=== PATIENT | female | born 1985 | race Hispanic/Latino ===

== ENCOUNTER 2018-07-24 08:20 | Emergency (ER) | payer BC, SELFPAY ==
[2018-07-24] MEDS ORDERED: MORPHINE 4 MG/ML SYR ONE (08:57)
[2018-07-24] MEDS ORDERED: ONDANSETRON 4 MG/2 ML VIAL ONE (08:58)
[2018-07-24 09:04] LABS: Absolute Lymphocytes (CBC) 5.2 K/uL (0.7-4.9); Absolute Neutrophil 6.6 K/uL (1.8-8.0); Basophils % 0.7 % (0-1.3); Eosinophils % 5.8 % (0-4.4); Hematocrit 42.7 % (36.0-45.0); Lymphocytes % 38.2 % (15.3-44.8); MPV 7.6 fL (7.6-11.3); Monocytes % 7.3 % (3.3-12.3); RBC Red Blood Cell Count 4.81 M/uL (3.86-4.86)
[2018-07-24] MEDS ORDERED: DIPHENHYDRAMINE 50 MG/ML VIAL ONE (09:18)
[2018-07-24 09:23] LABS: ALT/SGPT 21 U/L (12-78); AST/SGOT 13 U/L (15-37); Albumin 3.8 g/dL (3.4-5.0); Alkaline Phosphatase 116 U/L (45-117); BUN Blood Urea Nitrogen 10 mg/dL (7-18); Bicarbonate 25 mmol/L (21-32); Bilirubin Direct < 0.1 mg/dL (0-0.2); Bilirubin Total 0.2 mg/dL (0.2-1.0); Glucose Level 88 mg/dL (74-106); NT PRO-BNP 30 pg/mL (<125); Protein, Total 7.8 g/dL (6.4-8.2); Sodium Level 140 mmol/L (136-145); Troponin (Emerg Dept Use Only) < 0.02 ng/mL (0.0-0.045)
[2018-07-24 09:40] LABS: Protime INR 1.02
--- NOTE | 2018-07-24 09:42 | RAD REPORT ---
EXAM DESCRIPTION: Ismael Single View07/24/2018 9:27 am CLINICAL HISTORY: Chest pain COMPARISON: June 2017 FINDINGS: The lungs appear clear of acute infiltrate. The heart is normal size IMPRESSION: No acute abnormalities displayed
--- NOTE | 2018-07-24 10:52 | ER ---
Nurse's Notes [facility] Name: January Pereira Age: 32 yrs Sex: Female : 1985 Arrival Date: 07/24/2018 Time: 08:24 Bed 19 Private MD: Diagnosis: Trapezius Strain;UTI Presentation: 07/24 08:34 Presenting complaint: Patient states: left shoulder pain that radiates to left arm sv started yesterday. Pt laughed and was deep breathing yesterday and started having left sided chest pain and SOB. Transition of care: patient was not received from another setting of care. Onset of symptoms was July 23, 2018. Risk Assessment: Do you want to hurt yourself or someone else? Patient reports no desire to harm self or others. Initial Sepsis Screen: Does the patient meet any 2 criteria? No. Patient's initial sepsis screen is negative. Does the patient have a suspected source of infection? No. Patient's initial sepsis screen is negative. Care prior to arrival: None. 08:34 Method Of Arrival: Ambulatory sv 08:34 Acuity: HATTIE 3 sv Triage Assessment: 08:35 General: Appears in no apparent distress. uncomfortable, well developed, Behavior is sv cooperative, crying. Pain: Complains of pain in anterior aspect of left upper chest, left breast and left arm Pain currently is 8 out of 10 on a pain scale. Quality of pain is described as shooting, Pain began 1 day ago. Is continuous, Aggravated by increased activity. Neuro: Level of Consciousness is awake, alert, obeys commands, Oriented to person, place, time, situation, Moves all extremities. Full function Gait is steady. Cardiovascular: Patient's skin is warm and dry. Rhythm is sinus rhythm. Respiratory: Airway is patent Respiratory effort is even, unlabored, Respiratory pattern is regular, symmetrical. Derm: Skin is pink, warm \T\ dry. ENDOSCOPY SUPPORT SPECIALIST: 08:35 LMP N/A - control method, Mirena sv Historical: - Allergies: 08:43 No Known Allergies; sv - PMHx: 08:43 None; sv - PSHx: 08:43 ; sv - Immunization history:: Adult Immunizations up to date. - Social history:: Smoking status: Patient/guardian denies using tobacco. - Ebola Screening: : No symptoms or risks identified at this time. Screenin:35 Abuse screen: Denies threats or abuse. Denies injuries from another. Nutritional sv screening: No deficits noted. Tuberculosis screening: No symptoms or risk factors identified. Fall Risk None identified. Assessment: 09:08 Reassessment: Pt c/o itching after medication administration. Informed Henrry WALKER, venecia medication ordered. 10:15 Reassessment: Patient appears in no apparent distress at this time. Patient and/or sv family updated on plan of care and expected duration. Pain level reassessed. Patient is alert, oriented x 3, equal unlabored respirations, skin warm/dry/pink. Patient states feeling better. Patient states symptoms have improved. 11:04 Reassessment: Patient appears in no apparent distress at this time. Patient and/or sv family updated on plan of care and expected duration. Pain level reassessed. Patient is alert, oriented x 3, equal unlabored respirations, skin warm/dry/pink. Patient denies pain at this time. Patient states feeling better. Patient states symptoms have improved. Vital Signs: 08:43 BP 124 / 81; Pulse 69; Resp 20; Temp 97.2; Pulse Ox 99% ; Weight 113.4 kg; Height 5 ft. sv 7 in. (170.18 cm); Pain 8/10; 09:16 BP 113 / 85; Pulse 75; Resp 19; Pulse Ox 99% ; sv 10:14 BP 110 / 78; Pulse 65 MON; Resp 21; Pulse Ox 97% on R/A; sv 11:00 BP 112 / 80; Pulse 70; Resp 16; Pulse Ox 99% ; Pain 0/10; sv 08:43 Body Mass Index 39.16 (113.40 kg, 170.18 cm) sv 10:14 Sinus Rhythm sv ED Course: 08:24 Patient arrived in ED. sb2 08:32 Henrry Velasquez PA is PHCP. jmm 08:32 Bennie Castro MD is Attending Physician. jmm 08:35 Patient maintains SpO2 saturation greater than 95% on room air. sv 08:35 Arm band placed on Patient placed in an exam room, on a stretcher. sv 08:35 Patient has correct armband on for positive identification. Placed in gown. Bed in low sv position. Call light in reach. Adult w/ patient. svp digital sales on. Pulse ox on. NIBP on. Door closed. Head of bed elevated. 08:42 Sushma Ambrocio, RN is Primary Nurse. sv 08:43 Triage completed. sv 08:45 Initial lab(s) drawn, by ED staff, sent to lab. Inserted saline lock: 22 gauge in right sv forearm, using aseptic technique. ,using aseptic technique. diffusics, done by [facility] Blood collected. 09:27 XRAY Chest (1 view) In Process Unspecified. EDMS 11:04 No provider procedures requiring assistance completed. IV discontinued, intact, sv bleeding controlled, No redness/swelling at site. Pressure dressing applied. Administered Medications: 08:55 Drug: Zofran 4 mg Route: IVP; Infused Over: 2 mins; Site: right forearm; sv 09:12 Follow up: Response: No adverse reaction sv 08:57 Drug: morphine 4 mg Route: IVP; Site: right forearm; sv 09:13 Follow up: Response: No adverse reaction sv 09:12 Drug: Benadryl 25 mg Route: IVP; Site: right forearm; sv 09:30 Follow up: Response: No adverse reaction sv Outcome: 10:51 Discharge ordered by . li 11:04 Discharged to home ambulatory, with family. sv 11:04 Condition: stable 11:04 Discharge instructions given to patient, Instructed on discharge instructions, follow up and referral plans. no drinking with medication, no driving heavy equipment, medication usage, Demonstrated understanding of instructions, follow-up care, medications, Prescriptions given X 2. 11:05 Patient left the ED. sv Signatures: Dispatcher [employer] EDND Sushma Ambrocio RN RN sv Mickail, Joel, PA PA Cammie Garcia sb2
--- NOTE | 2018-07-24 10:53 | EDPHYS ---
Physician Documentation [facility] Name: January Pereira Age: 32 yrs Sex: Female : 1985 Arrival Date: 07/24/2018 Time: 08:24 Bed 19 Private MD: ED Physician Bennie Castro HPI: 07/24 08:42 This 32 yrs old Female presents to ER via Ambulatory with complaints of m Shoulder Pain, Chest Pain - ON BREATHING. 08:42 The patient or guardian reports chest pain that is located primarily in the anterior [facility] chest wall. The pain radiates to the left arm. Associated signs and symptoms: Pertinent positives: shortness of breath. The chest pain is described as sharp. This is a 32 year old female with no chronic medical conditions that presents to the ED with complaints of chest pain beginning yesterday at 1600. Patient states she developed left upper back pain which radiated down her left arm 2 hours prior and chest pain developed after laughing. Pain has been constant. Worsened with deep breath. Patient denies history of CAD. . 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 - Social history:: Smoking status: Patient/guardian denies using tobacco. - Ebola Screening: : No symptoms or risks identified at this time. ROS: 08:42 Constitutional: Negative for fever, chills, and weight loss. jmm 08:42 Respiratory: Negative for shortness of breath, cough, wheezing, and pleuritic chest pain. 08:42 Cardiovascular: Positive for chest pain. 08:42 Back: Positive for pain with movement. 08:42 MS/extremity: Positive for pain. 08:42 All other systems are negative. Exam: 08:42 Constitutional: This is a well developed, well nourished patient who is awake, alert, jmm and in no acute distress. Head/Face: atraumatic. Eyes: EOMI, no conjunctival erythema appreciated ENT: Moist Mucus Membranes Neck: Trachea midline, Supple Chest/axilla: Normal chest wall appearance and motion. 08:42 Skin: General appearance color normal MS/ Extremity: Moves all extremities, no obvious deformities appreciated, no edema noted to the lower extremities Neuro: Awake and alert, normal gait Psych: Behavior is normal, Mood is normal, Patient is cooperative and pleasant 08:42 Chest/axilla: Palpation: tenderness, that is moderate, of the anterior aspect of left upper chest, that totally reproduces the patient's complaints. 08:42 Cardiovascular: Rate: normal, Rhythm: regular. 08:42 Respiratory: the patient does not display signs of respiratory distress, Respirations: normal, Breath sounds: are clear throughout. 08:42 Abdomen/GI: Inspection: abdomen appears normal. 08:42 Back: left trapezius tenderness on palpation. 08:42 Musculoskeletal/extremity: ROM: intact in all extremities. 08:42 Skin: Appearance: Color: normal in color. 08:42 Neuro: Orientation: is normal, Mentation: is normal, Memory: is normal. 08:42 Psych: Behavior/mood is pleasant, cooperative. Vital Signs: 08:43 BP 124 / 81; Pulse 69; Resp 20; Temp 97.2; Pulse Ox 99% ; Weight 113.4 kg; Height 5 ft. sv 7 in. (170.18 cm); Pain 8/10; 09:16 BP 113 / 85; Pulse 75; Resp 19; Pulse Ox 99% ; sv 10:14 BP 110 / 78; Pulse 65 MON; Resp 21; Pulse Ox 97% on R/A; sv 11:00 BP 112 / 80; Pulse 70; Resp 16; Pulse Ox 99% ; Pain 0/10; sv 08:43 Body Mass Index 39.16 (113.40 kg, 170.18 cm) sv 10:14 Sinus Rhythm sv MDM: 08:42 Patient medically screened. [facility] 10:49 Data reviewed: vital signs, nurses notes, lab test result(s), EKG, radiologic studies, [facility] plain films. ED course: Patient has low risk of AMI, D-Dimer negative. I advised the patient to follow up with PCP for reevaluation. Patient is otherwise advised to return to the ED if symptoms worsen. . 07/24 08:43 Order name: Basic Metabolic Panel; Complete Time: 09:25 [facility] 07/24 08:43 Order name: CBC with Diff; Complete Time: 09:25 [facility] 07/24 08:43 Order name: LFT's; Complete Time: 09:25 [facility] 07/24 08:43 Order name: Magnesium; Complete Time: 09:25 [facility] 07/24 08:43 Order name: NT PRO-BNP; Complete Time: 09:25 [facility] 07/24 08:43 Order name: PT-INR; Complete Time: 09:43 [facility] 07/24 08:43 Order name: Troponin (emerg Dept Use Only); Complete Time: 09:25 [facility] 07/24 08:43 Order name: XRAY Chest (1 view); Complete Time: 09:45 [facility] 07/24 08:43 Order name: D-Dimer; Complete Time: 09:43 [facility] 07/24 10:08 Order name: Urine Dipstick--Ancillary (enter results) 07/24 10:08 Order name: Urine --Ancillary (enter results) 07/24 10:14 Order name: Urine Microscopic Only; Complete Time: 11:01 07/24 08:43 Order name: EKG; Complete Time: 08:44 [facility] 07/24 08:43 Order name: Cardiac monitoring; Complete Time: 09:01 [facility] 07/24 08:43 Order name: EKG - Nurse/Tech; Complete Time: 09:01 [facility] 07/24 08:43 Order name: IV Saline Lock; Complete Time: 09:01 [facility] 07/24 08:43 Order name: Labs collected and sent; Complete Time: 09:01 [facility] 07/24 08:43 Order name: O2 Per Protocol; Complete Time: 09:01 [facility] 07/24 08:43 Order name: O2 Sat Monitoring; Complete Time: 09:01 [facility] Administered Medications: 08:55 Drug: Zofran 4 mg Route: IVP; Infused Over: 2 mins; Site: right forearm; sv 09:12 Follow up: Response: No adverse reaction sv 08:57 Drug: morphine 4 mg Route: IVP; Site: right forearm; sv 09:13 Follow up: Response: No adverse reaction sv 09:12 Drug: Benadryl 25 mg Route: IVP; Site: right forearm; sv 09:30 Follow up: Response: No adverse reaction sv Disposition: 17:18 Co-signature as Attending Physician, Bennie Castro MD. rn Disposition: 07/24/18 10:51 Discharged to Home. Impression: Trapezius Strain, UTI. - Condition is Stable. - Discharge Instructions: Nonspecific Chest Pain, Muscle Strain, Urinary Tract Infection, Adult. - Prescriptions for Cephalexin 500 mg Oral Capsule - take 1 capsule by ORAL route every 12 hours for 7 days; 14 capsule. orphenadrine citrate 100 mg Oral Tablet Sustained Release - take 1 tablet by ORAL route 2 times per day As needed; 20 tablet. - Work release form, Medication Reconciliation Form, Thank You Letter, Antibiotic Education, Prescription Opioid Use form. - Follow up: Private Physician; When: 2 - 3 days; Reason: Recheck today's complaints, Continuance of care, Re-evaluation by your physician. Signatures: Dispatcher [employer] Sushma Solitario RN RN Henrry Gresham PA PA jmm Nieto, Roman, MD MD director learning: (The following items were deleted from the chart) 11:05 10:51 07/24/2018 10:51 Discharged to Home. Impression: Trapezius Strain; UTI. Condition sv is Stable. Forms are Medication Reconciliation Form, Thank You Letter, Antibiotic Education, Prescription Opioid Use. Follow up: Private Physician; When: 2 - 3 days; Reason: Recheck today's complaints, Continuance of care, Re-evaluation by your physician. li
[2018-07-24 10:54] LABS: Urine Bacteria >50 /HPF (<20); Urine Culture Reflex Order NOT NEEDED; Urine RBC <5 /HPF (NONE SEEN)
[2018-07-24 11:25] VITALS: TEMP 97.2
[2018-07-24 11:27] VITALS: BP 110/78; O2SAT 97
--- NOTE | 2018-07-24 12:19 | EKG ---
Test Date: 2018-06-23 Test Time: 08:56:44 Brick Tender: FAYE MEASUREMENT RESULTS: Intervals: Rate: 71 DC: 130 QRSD: 80 QT: 398 QTc: 432 [place]: P: 34 DC: 130 QRS: 59 T: 51 INTERPRETIVE STATEMENTS: Normal sinus rhythm Normal ECG Compared to ECG 07/13/2017 08:01:17 Sinus bradycardia no longer present Electronically Signed On 07-24-18 12:18:39 PRINTED CIRCUIT BOARD ASSEMBLY REPAIRER by Franco Chaves
[2018-07-24 12:35] LABS: Urine Blood 3+ (NEG); Urine Glucose NEGATIVE (NEG); Urine Protein NEGATIVE (NEG); Urine Specific Gravity 1.025 (1.005-1.030); Urine pH 5.5 (5.0-7.0)
== END 2018-07-24 11:05 | disposition home or self-care (01) ==
LOC: ER 08:20
DX: S46.812A Strain of other muscles, fascia and tendons at shoulder and upper arm level, left arm, initial encounter (principal); N39.0 Urinary tract infection, site not specified
CPT/HCPCS: 36415; 71045; 80048; 80076; 81003; 81015; 81025; 83735; 83880; 84484; 85025; 85379; 85610; 93005; 96374; 96375; 99285; J2405

== ENCOUNTER 2018-09-12 08:49 | Emergency (ER) | payer BC ==
[2018-09-12] MEDS ORDERED: predniSONE 20 MG TAB ONE (09:30)
[2018-09-12] MEDS ORDERED: ALBUTEROL 2.5 MG/3 ML NEB SOL ONE ×2 (09:30→10:07)
[2018-09-12] MEDS ORDERED: IPRATROPIUM BROM 0.5MG/2.5ML ONE (10:07)
--- NOTE | 2018-09-12 10:28 | EDPHYS ---
Physician Documentation [facility] Name: January Pereira Age: 32 yrs Sex: Female : 1985 Arrival Date: 09/12/2018 Time: 08:52 Bed 8 Private MD: ED Physician Jad Spicer HPI: 09/12 09:30 This 32 yrs old Female presents to ER via Ambulatory with complaints of Cough. pm1 09:30 The patient or guardian reports cough, with productive sputum, that is yellow. Onset: pm1 The symptoms/episode began/occurred 6 day(s) ago. Severity of symptoms: in the emergency department the symptoms are unchanged. Modifying factors: The symptoms are alleviated by nothing, the symptoms are aggravated by nothing. Associated signs and symptoms: Pertinent positives: sore throat, Pertinent negatives: fever, nausea, vomiting. 09:30 The patient has been recently seen by a physician: The patient has been recently seen pm1 at an urgent care, for similar complaints, Monday and was diagnosed with asthma and given a prescription for an inhaler. 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 - Social history:: Smoking status: Patient uses tobacco products, smokes one pack cigarettes per day. - Ebola Screening: : Patient negative for fever greater than or equal to 101.5 degrees Fahrenheit, and additional compatible Ebola Virus Disease symptoms Patient denies exposure to infectious person Patient denies travel to an Ebola-affected area in the 21 days before illness onset No symptoms or risks identified at this time. ROS: 09:30 Constitutional: Negative for fever, chills, and weight loss, Eyes: Negative for injury, pm1 pain, redness, and discharge. 09:30 Neck: Negative for injury, pain, and swelling, Cardiovascular: Negative for chest pain, palpitations, and edema. 09:30 Abdomen/GI: Negative for abdominal pain, nausea, vomiting, diarrhea, and constipation, Back: Negative for injury and pain, : Negative for injury, bleeding, discharge, and swelling, MS/Extremity: Negative for injury and deformity, Skin: Negative for injury, rash, and discoloration, Neuro: Negative for headache, weakness, numbness, tingling, and seizure. 09:30 ENT: Positive for sore throat, Negative for drainage from ear(s), ear pain, difficulty swallowing, difficulty handling secretions, hoarseness. 09:30 Respiratory: Positive for cough, Negative for shortness of breath. Exam: 09:30 Constitutional: This is a well developed, well nourished patient who is awake, alert, pm1 and in no acute distress. Head/Face: Normocephalic, atraumatic. Eyes: Pupils equal round and reactive to light, extra-ocular motions intact. Lids and lashes normal. Conjunctiva and sclera are non-icteric and not injected. Cornea within normal limits. Periorbital areas with no swelling, redness, or edema. ENT: Nares patent. No nasal discharge, no septal abnormalities noted. Tympanic membranes are normal and external auditory canals are clear. Oropharynx with no redness, swelling, or masses, exudates, or evidence of obstruction, uvula midline. Mucous membranes moist. Neck: Trachea midline, no thyromegaly or masses palpated, and no cervical lymphadenopathy. Supple, full range of motion without nuchal rigidity, or vertebral point tenderness. No Meningismus. Chest/axilla: Normal chest wall appearance and motion. Nontender with no deformity. No lesions are appreciated. Cardiovascular: Regular rate and rhythm with a normal S1 and S2. No gallops, murmurs, or rubs. Normal PMI, no JVD. No pulse deficits. 09:30 Abdomen/GI: Soft, non-tender, with normal bowel sounds. No distension or tympany. No guarding or rebound. No evidence of tenderness throughout. Back: No spinal tenderness. No costovertebral tenderness. Full range of motion. Skin: Warm, dry with normal turgor. Normal color with no rashes, no lesions, and no evidence of cellulitis. MS/ Extremity: Pulses equal, no cyanosis. Neurovascular intact. Full, normal range of motion. 09:30 Respiratory: the patient does not display signs of respiratory distress, Respirations: normal, Breath sounds: wheezing: expiratory is heard diffusely. 09:30 Neuro: Orientation: is normal, Motor: is normal, moves all fours. Vital Signs: 09:17 BP 105 / 61; Pulse 84; Resp 17; Temp 98.3(O); Pulse Ox 98% on R/A; Weight 113.4 kg; pc1 Height 5 ft. 7 in. (170.18 cm); Pain 10/10; 10:00 BP 115 / 76; Pulse 88; Resp 16; Pulse Ox 99% on R/A; hb 09:17 Body Mass Index 39.16 (113.40 kg, 170.18 cm) pc1 MDM: 08:55 Patient medically screened. pm1 09:55 Data reviewed: vital signs. Data interpreted: Pulse oximetry: on room air is 98 %. pm1 Interpretation: Patient feels better after albuterol 2.5 and prednisone. Wheezing improved. Will give patient additional breathing treatment. 10:26 Counseling: I had a detailed discussion with the patient and/or guardian regarding: the pm1 historical points, exam findings, and any diagnostic results supporting the discharge/admit diagnosis, lab results, the need for outpatient follow up, to return to the emergency department if symptoms worsen or persist or if there are any questions or concerns that arise at home. 09/12 09:09 Order name: Flu; Complete Time: 09:51 pm1 09/12 09:09 Order name: Strep; Complete Time: 09:40 pm1 09/12 09:39 Order name: Throat Culture EDMS Administered Medications: 09:26 Drug: Albuterol 2.5 mg Route: Inhalation; ph 10:15 Follow up: Response: No adverse reaction hb 09:26 Drug: predniSONE 60 mg Route: PO; ph 10:30 Follow up: Response: No adverse reaction hb 10:02 Drug: Albuterol 2.5 mg Route: Inhalation; hb 10:47 Follow up: Response: No adverse reaction; Marked relief of symptoms pc1 10:02 Drug: AtroVENT Aerosol 0.5 mg Route: Inhalation; hb 10:47 Follow up: Response: No adverse reaction; Marked relief of symptoms pc1 Disposition: 09/13 06:51 Co-signature as Attending Physician, Jad Spicer MD I agree with the assessment and wa plan of care. Disposition: 09/12/18 10:26 Discharged to Home. Impression: Bronchitis, not specified as acute or chronic. - Condition is Stable. - Discharge Instructions: Acute Bronchitis, Adult, How to Use an Inhaler. - Prescriptions for Tessalon Perles 100 mg Oral Capsule - take 1 capsule by ORAL route every 8 hours As needed; 15 capsule. Medrol (Kevin) 4 mg Oral Tablets, Dose Pack - take 1 tablet by ORAL route as directed - follow package instructions; 1 packet. Albuterol Sulfate 90 mcg/actuation - inhale 1-2 puff by INHALATION route every 4-6 hours; 1 Inhaler. - Medication Reconciliation Form, Thank You Letter, Antibiotic Education, Prescription Opioid Use, Work release form form. - Follow up: Emergency Department; When: As needed; Reason: Worsening of condition. Follow up: Private Physician; When: 2 - 3 days; Reason: Recheck today's complaints, Continuance of care, Re-evaluation by your physician. - Problem is new. - Symptoms have improved. Signatures: Dispatcher [employer] EDMS Kaitlin Kwong RN RN Jacky Lucero, JORGE VICE PRESIDENT TALENT MANAGEMENT pm1 Mireya Jacob RN RN Nayan, MD [address] Jacky Dolan [facility] Corrections: (The following items were deleted from the chart) 09/12 10:52 10:26 09/12/2018 10:26 Discharged to Home. Impression: Bronchitis, not specified as hb acute or chronic. Condition is Stable. Forms are Medication Reconciliation Form, Thank You Letter, Antibiotic Education, Prescription Opioid Use. Follow up: Emergency Department; When: As needed; Reason: Worsening of condition. Follow up: Private Physician; When: 2 - 3 days; Reason: Recheck today's complaints, Continuance of care, Re-evaluation by your physician. Problem is new. Symptoms have improved. pm1 18:10 09:30 Associated signs and symptoms: Pertinent negatives: fever, nausea, sore throat, pm1 vomiting, pm1
--- NOTE | 2018-09-12 10:28 | ER ---
Nurse's Notes [facility] Name: January Pereira Age: 32 yrs Sex: Female : 1985 Arrival Date: 09/12/2018 Time: 08:52 Bed 8 Private MD: Diagnosis: Bronchitis, not specified as acute or chronic Presentation: 09/12 09:04 Presenting complaint: Patient states: Painful coughing since Monday with chest pc1 tightness. Transition of care: patient was not received from another setting of care. Onset of symptoms was September 09, 2018. Risk Assessment: Do you want to hurt yourself or someone else? Patient reports no desire to harm self or others. Initial Sepsis Screen: Does the patient meet any 2 criteria? No. Patient's initial sepsis screen is negative. Does the patient have a suspected source of infection? No. Patient's initial sepsis screen is negative. Care prior to arrival: Medication(s) given: Mucinex. 09:04 Method Of Arrival: Ambulatory pc1 09:05 Acuity: HATTIE 4 hb Triage Assessment: 09:10 General: Appears uncomfortable, Behavior is calm, cooperative. Pain: Complains of pain pc1 in Painful Cough Pain radiates to chest Pain currently is 10 out of 10 on a pain scale. Pain began 2-3 days ago. Is continuous, Alleviated by nothing. Aggravated by Coughing. EENT: Reports Cough. Denies difficulty swallowing. Neuro: Level of Consciousness is awake, alert, obeys commands, Oriented to person, place, time, [employer] are equal bilaterally Moves all extremities. Full function Speech is normal. Cardiovascular: Capillary refill < 3 seconds Patient's skin is warm and dry. Pulses are 2+ in right radial artery and left radial artery. Respiratory: Airway is patent Trachea midline Respiratory effort is even, unlabored, Respiratory pattern is regular, symmetrical, Sputum is green Breath sounds with wheezes in left upper lobe. GI: No signs and/or symptoms were reported involving the gastrointestinal system. : No signs and/or symptoms were reported regarding the genitourinary system. Derm: Skin is intact, is healthy with good turgor, Skin is dry, Skin is pink, warm \T\ dry. Skin temperature is warm. Musculoskeletal: Circulation, motion, and sensation intact. Capillary refill < 3 seconds, Range of motion: intact in all extremities. 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 - Social history:: Smoking status: Patient uses tobacco products, smokes one pack cigarettes per day. - Ebola Screening: : Patient negative for fever greater than or equal to 101.5 degrees Fahrenheit, and additional compatible Ebola Virus Disease symptoms Patient denies exposure to infectious person Patient denies travel to an Ebola-affected area in the 21 days before illness onset No symptoms or risks identified at this time. Screenin:19 Abuse screen: Denies threats or abuse. Denies injuries from another. Nutritional pc1 screening: No deficits noted. Tuberculosis screening: No symptoms or risk factors identified. Fall Risk None identified. Assessment: 09:19 Reassessment: See triage notes. pc1 10:15 Reassessment: Patient appears in no apparent distress at this time. Patient and/or hb family updated on plan of care and expected duration. Pain level reassessed. Patient is alert, oriented x 3, equal unlabored respirations, skin warm/dry/pink. Vital Signs: 09:17 BP 105 / 61; Pulse 84; Resp 17; Temp 98.3(O); Pulse Ox 98% on R/A; Weight 113.4 kg; pc1 Height 5 ft. 7 in. (170.18 cm); Pain 10/10; 10:00 BP 115 / 76; Pulse 88; Resp 16; Pulse Ox 99% on R/A; hb 09:17 Body Mass Index 39.16 (113.40 kg, 170.18 cm) pc1 ED Course: 08:52 Patient arrived in ED. tw3 08:54 Jacky Lucero NP is PHCP. pm1 08:54 Jad Spicer MD is Attending Physician. pm1 09:19 Mireya Jacob RN is Primary Nurse. hb 09:19 Triage completed. hb 09:19 Arm band placed on. hb 09:19 Patient has correct armband on for positive identification. Placed in gown. Bed in low pc1 position. Call light in reach. Side rails up X2. 10:48 Patient did not have IV access during this emergency room visit. pc1 10:52 No provider procedures requiring assistance completed. hb Administered Medications: 09:26 Drug: Albuterol 2.5 mg Route: Inhalation; ph 10:15 Follow up: Response: No adverse reaction hb 09:26 Drug: predniSONE 60 mg Route: PO; ph 10:30 Follow up: Response: No adverse reaction hb 10:02 Drug: Albuterol 2.5 mg Route: Inhalation; hb 10:47 Follow up: Response: No adverse reaction; Marked relief of symptoms pc1 10:02 Drug: AtroVENT Aerosol 0.5 mg Route: Inhalation; hb 10:47 Follow up: Response: No adverse reaction; Marked relief of symptoms pc1 Outcome: 10:26 Discharge ordered by MD. pm1 10:48 Discharged to home ambulatory. pc1 10:48 Condition: stable 10:48 Discharge instructions given to patient, Instructed on discharge instructions, follow up and referral plans. medication usage, Demonstrated understanding of instructions, follow-up care, medications. 10:52 Attestation : I agree with previous assessments. hb 10:52 Patient left the ED. hb Signatures: Kaitlin Kwong, RN RN Jacky Floyd, WOUND TREATMENT RN WOUND TREATMENT RN pm1 Mireya Jacob RN RN hb Wade, Tia tw3 Jacky Dolan pc1
[2018-09-12 10:56] VITALS: TEMP 98.3
[2018-09-12 10:58] VITALS: BP 115/76; O2SAT 99
== END 2018-09-12 10:52 | disposition home or self-care (01) ==
LOC: ER 08:49
DX: J40 Bronchitis, not specified as acute or chronic (principal); J45.909 Unspecified asthma, uncomplicated; F17.210 Nicotine dependence, cigarettes, uncomplicated
CPT/HCPCS: 87070; 87081; 87804; 99284; J7512

== ENCOUNTER → 2023-07-16 | Emergency (ER) | payer SELFPAY ==
[~2023-07-16] MED LIST: HYDROCODONE/CHLORPHEN 5 ML/OSYR ONE; IBUPROFEN 400 MG TAB ONE
--- OUTSIDE RECORDS SUMMARY | 2023-07-16 17:25 | XMS REPORT | Continuity of Care Document ---
Author Name Unknown Address [address] [place] [address] [facility] thconnect Address [address] [place] [address] Care Team Providers Care Selling Underwriter Name Role Phone Lisa JOHN, Carolyn Fischer Primary Care Physician Brenda Brunner Attending Clinician [phone] Unknown, Attending Attending Clinician Unavailab BRENDA Nunez Attending Clinician Unavailable Doctor Unassigned, [place] Attending Clinician U navailable [email or web address] Attending Clinician Unavaila Noemi Schafer Attending Clinician [phone] NOEMI ALVARADO Attending Clinician Unavailable Caridad Luna RN Attending Clinician Unavaila ble Only, Ang Db Test Attending Clinician UnavailTiffany Hernandez MD Attending Clinician [phone] TIFFANY SALINAS Attending Clinician Unavailable [email or web address] Admitting Clinician Unavaila ble Payers Payer Name Policy Type Policy Number Effective Date Expirati on Date Source Problems Condition Name Condition Details Condition Category Status Onset Date Resolution Date Last Treatment Date Treating Clinician Comments Source No known active problems No known active problems Disease Univers [facility] Allergies, Adverse Reactions, Alerts Allergy Name Allergy Type Status Severity Reaction(s) Onset Date Inactive Date Treating Clinician Comments Source NO KNOWN ALLERGIE S Drug Class Active [facility] Social History Social Habit Start Date Stop Date Quantity Comments Source Sexual orientation U [facility] Exposure to SARS-CoV-2 (event) 2022-03-05 00:00:00 2022-03-15 12:31:00 Not sure [facility] Tobacco use and exposure 2022-03-15 00:00:00 2022-03-15 00:00:00 User of smokeless tobacco [facility] Alcohol intake 2022-03-15 00:00:00 2022-03-15 00:00:00 Ex-drinker (finding) [facility] Tobacco Comment 2022-03-15 00:00:00 2022-03-15 00:00:00 Vape [facility] Sex Assigned At 1985 00:00:00 1985 00:00:00 [facility] Smoking Status Start Date Stop Date Source Tobacco smoking consumption unknown [facility] Never smoked tobacco [facility] Medications Ordered Medication Name Filled Medication Name Start Date Stop Date Current Medication? Ordering Clinician Indication Dosage Frequency Signature (SIG) Comments Components Source cetirizine (ZYRTEC) 10 mg tablet 2022-06 00:00: 00 07-11 05:59 :00 Yes [id number] 10mg Take 1 tablet by mouth in the morning for 30 days. [facility] ondansetron 4 mg disintegrat ing tablet 03-15 00:00: 00 Yes [id number] 4mg Take 1 tablet by mouth every 8 (eight) hours as needed for Nausea and Vomiting (N/V). [facility] ondansetron 4 mg disintegrat ing tablet 03-15 00:00: 00 Yes [id number] 4mg Take 1 tablet by mouth every 8 (eight) hours as needed for Nausea and Vomiting (N/V). [facility] ondansetron 4 mg disintegrat ing tablet 03-15 00:00: 00 Yes [id number] 4mg Take 1 tablet by mouth every 8 (eight) hours as needed for Nausea and Vomiting (N/V). [facility] Immunizations Ordered Immunization Name Filled Immunization Name Date Status Comments Source SARS-COV-2 COVID-19 MODERNA VACCINE 2020-09-14 00:00:00 Completed [facility] SARS-COV-2 COVID-19 MODERNA VACCINE 2020-09-14 00:00:00 Completed [facility] SARS-COV-2 COVID-19 MODERNA 12+ YRS VACCINE 2020-09-14 00:00:00 Completed [facility] SARS-COV-2 COVID-19 MODERNA VACCINE 2020-08-17 00:00:00 Completed [facility] SARS-COV-2 COVID-19 MODERNA VACCINE 2020-08-17 00:00:00 Completed [facility] SARS-COV-2 COVID-19 MODERNA 12+ YRS VACCINE 2020-08-17 00:00:00 Completed [facility] SARS-COV-2 COVID-19 MODERNA 12+ YRS VACCINE Unknown Completed [facility] SARS-COV-2 COVID-19 MODERNA 12+ YRS VACCINE Unknown Completed [facility] SARS-COV-2 COVID-19 MODERNA 12+ YRS VACCINE Unknown Completed [facility] SARS-COV-2 COVID-19 MODERNA 12+ YRS VACCINE Unknown Completed [facility] Vital Signs Vital Name Observation Time Observation Value Comments S ource Systolic blood pressure 2023-06-10 21:56:00 134 mm[Hg] [facility] Diastolic blood pressure 2023-06-10 21:56:00 85 mm[Hg] [facility] Heart rate 2023-06-10 21:56:00 69 /min [facility] Body temperature 2023-06-10 21:56:00 36.72 Qi [facility] Respiratory rate 2023-06-10 21:56:00 15 /min [facility] Body height 2023-06-10 21:56:00 167.6 cm [facility] Body weight 2023-06-10 21:56:00 109.77 kg [facility] BMI 2023-06-10 21:56:00 39.06 kg/m2 [facility] Oxygen saturation in Arterial blood by Pulse oximetry 2023-06-10 21:56:00 100 /min [facility] Systolic blood pressure 2022-03-15 17:33:00 122 mm[Hg] [facility] Diastolic blood pressure 2022-03-15 17:33:00 81 mm[Hg] [facility] Heart rate 2022-03-15 17:33:00 66 /min [facility] Body temperature 2022-03-15 17:33:00 36.89 Qi [facility] Respiratory rate 2022-03-15 17:33:00 18 /min [facility] Body height 2022-03-15 17:33:00 170.2 cm [facility] Body weight 2022-03-15 17:33:00 112.129 kg [facility] BMI 2022-03-15 17:33:00 38.72 kg/m2 [facility] Oxygen saturation in Arterial blood by Pulse oximetry 2022-03-15 17:33:00 98 /min [facility] Procedures Procedure Date / Time Performed Performing Clinicia n Source ASSIGNMENT OF BENEFITS 2023-06-10 21:46:25 Docto r Unassigned, [place] [facility] Encounters Start Date/Time End Date/Time Encounter Type Admission Type Attending Clinicians Care Facility Care Department Encounter ID Source 2023-06-10 15:40:00 2023-06-10 16:00:00 Urgent Care Brenda Ibarra Unknown, Attending [facility] [id number] [facility] 2023-06-10 15:40:00 2023-06-10 15:40:00 Outpatient R BRENDA IBARRA [facility] [id number] [facility] 2023-06-10 00:00:00 2023-06-10 00:00:00 Orders Only Doctor Unassigned, [place] [facility] [id number] [facility] 2023-04-19 00:00:00 2023-04-19 00:00:00 Outpatient [email or web address] PRIV PRIV [id number] [facility] 2022-03-15 12:20:00 2022-03-15 12:40:00 Urgent Care Noemi Alvarado Unknown, Attending [facility] [id number] [facility] 2022-03-15 12:20:00 2022-03-15 12:20:00 Outpatient R CHRISTIANOBOLIVARY [facility] [id number] [facility] 2021-12-28 00:00:00 2021-12-28 00:00:00 Telephone Caridad Luna [facility] [id number] [facility] 2021-12-27 10:00:00 2021-12-27 10:15:00 Laboratory Only Only, Ang Db Test Emmett [facility] [id number] [facility] 2021-12-27 10:00:00 2021-12-27 10:04:46 Outpatient TIFFANY MORAN [facility] [id number] [facility] Results Test Description Test Time Test Comments Results Result Co mments Source
--- NOTE | 2023-07-16 18:44 | EDPHYS ---
Physician Documentation [facility] Name: January Pereira Age: 37 yrs Sex: Female : 1985 Arrival Date: 07/16/2023 Time: 17:22 Bed 11 Private MD: ED Physician Brent Loving HPI: 07/16 17:45 This 37 yrs old Female presents to ER via Ambulatory with complaints of Fever, cp Cough, Sore Throat. 17:45 The patient reports fever, not measured (subjective). Associated signs and symptoms: cp Pertinent positives: cough, sore throat, congestion, Pertinent negatives: diarrhea, headache, vomiting. Severity of symptoms: in the emergency department the symptoms are unchanged despite home interventions. 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 - Social history:: Smoking status: Patient denies any tobacco usage or history of. ROS: 17:50 Constitutional: Positive for body aches, Negative for fever, poor PO intake, cp 17:50 Eyes: Negative for injury, pain, redness, and discharge, cp 17:50 ENT: Positive for sore throat, Negative for drainage from ear(s), ear pain, difficulty swallowing, difficulty handling secretions, 17:50 Cardiovascular: Negative for chest pain, 17:50 Respiratory: Positive for cough, "sounds productive", Negative for wheezing, 17:50 Abdomen/GI: Negative for abdominal pain, vomiting, diarrhea, constipation, 17:50 Neuro: Negative for altered mental status, headache, weakness, 17:50 All other systems are negative, Exam: 17:55 Constitutional: The patient appears in no acute distress, alert, awake, non-toxic, well cp developed, well nourished, obese, 17:55 Head/Face: Normocephalic, atraumatic. cp 17:55 Eyes: Periorbital structures: appear normal, Conjunctiva: normal, no exudate, no cp injection, Sclera: no appreciated abnormality, Lids and lashes: appear normal, bilaterally, 17:55 ENT: External ear(s): are unremarkable, Ear canal(s): are normal, clear, TM's: bulging, is not appreciated, bilaterally, dullness, bilaterally, erythema, is not appreciated, bilaterally, Nose: is normal, Mouth: Lips: moist, Oral mucosa: moist, Posterior pharynx: Airway: no evidence of obstruction, patent, Tonsils: no enlargement, no exudate, erythema, that is mild, exudate, is not appreciated, 17:55 Neck: ROM/movement: is normal, is supple, no meningismus, no nuchal rigidity, Lymph nodes: no appreciated lymphadenopathy, 17:55 Chest/axilla: Inspection: normal, 17:55 Cardiovascular: Rate: normal, Rhythm: regular, 17:55 Respiratory: the patient does not display signs of respiratory distress, Respirations: normal, no use of accessory muscles, no retractions, labored breathing, is not present, Breath sounds: decreased breath sounds, are not appreciated, stridor, is not appreciated, + upper airway congestion. wheezing: is not appreciated, 17:55 Abdomen/GI: Exam negative for discomfort, distension, guarding, Inspection: abdomen appears normal, 17:55 Skin: no rash present. cp Vital Signs: 17:30 BP 124 / 81; Pulse 84; Resp 18 S; Temp 98.2(O); Pulse Ox 99% on R/A; Weight 108.86 kg as6 (R); Height 5 ft. 6 in. (R); Pain 10/10; 17:30 Body Mass Index 38.74 (108.86 kg, 167.64 cm) as6 17:30 Pain Scale: Adult as6 MDM: 17:33 Patient medically screened. cp 18:44 Data reviewed: vital signs, nurses notes, lab test result(s), and as a result, I will cp discharge patient. 18:44 Differential diagnosis: viral Infection, bacterial infection, URI, bronchitis, cp pneumonia. I considered the following discharge prescriptions or medication management in the emergency department Medications were administered in the Emergency Department. See MAR. Counseling: I had a detailed discussion with the patient and/or guardian regarding the historical points, exam findings, and any diagnostic results supporting the discharge/admit diagnosis, lab results, to return to the emergency department if symptoms worsen or persist or if there are any questions or concerns that arise at home. Response to treatment: the patient's symptoms have markedly improved after treatment, and as a result, I will discharge patient. 07/16 17:40 Order name: COVID-19 SARS RT PCR; Complete Time: 18:41 cp 07/16 18:41 Interpretation: Reviewed. cp 07/16 17:40 Order name: Strep; Complete Time: 18:41 cp 07/16 17:40 Order name: Influenza Screen (a \\T\\ B); Complete Time: 18:41 cp 07/16 18:41 Interpretation: Reviewed. cp 07/16 18:42 Order name: Throat Culture EDMS Administered Medications: 17:49 Drug: Tussionex Pennkinetic ER PO Suspension 5 ml PO once Route: PO; as6 18:56 Follow up: Response: No adverse reaction as6 17:49 Drug: Ibuprofen PO 800 mg PO once Route: PO; as6 18:56 Follow up: Response: No adverse reaction as6 Disposition Summary: 07/16/23 18:44 Discharge Ordered Notes: Location: Home cp Problem: new cp Symptoms: have improved cp Condition: Stable cp Diagnosis - Cough cp - Acute pharyngitis, unspecified cp Followup: cp - With: Private Physician - When: 2 - 3 days - Reason: Worsening of condition Discharge Instructions: - Discharge Summary Sheet cp - Pharyngitis cp - Sore Throat cp - Cough, Adult cp - Form - Return To Work cp Forms: - Medication Reconciliation Form cp - Thank You Letter cp - Antibiotic Education cp - Prescription Opioid Use cp - Patient Portal Instructions cp - Leadership Thank You Letter cp - Work release form rv1 Prescriptions: - Bromfed DM 2-30-10 mg/5 mL Oral syrup - administer 10 milliliter ORAL route every 6-8 hours as needed for cold cp symptoms; 240 milliliter; Refills: 0, Product Selection Permitted - Ibuprofen 800 mg Oral Tablet - take 1 tablet ORAL route every 8 hours As needed take with food; 30 tablet; cp Refills: 0, Product Selection Permitted Signatures: Dispatcher [facility] EDNV Glen Saul PA PA cp Slawson, Ashby, RN RN as6 Corrections: (The following items were deleted from the chart) 17:32 17:31 PMHx: Asthma; as6 as6 07/17 18:30 18:28 Constitutional: Positive for body aches, Negative for fever, poor PO intake, cp cp
--- NOTE | 2023-07-16 18:44 | ER ---
Nurse's Notes [facility] Name: January Pereira Age: 37 yrs Sex: Female : 1985 Arrival Date: 07/16/2023 Time: 17:22 Bed 11 Private MD: Diagnosis: Cough;Acute pharyngitis, unspecified Presentation: 07/16 17:30 Chief complaint: Patient states: generalized not feeling well, cough, congestions. as6 Coronavirus screen: At this time, the client does not indicate any symptoms associated with coronavirus-19. Ebola Screen: No symptoms or risks identified at this time. Initial Sepsis Screen: Does the patient meet any 2 criteria? No. Patient's initial sepsis screen is negative. Does the patient have a suspected source of infection? No. Patient's initial sepsis screen is negative. Risk Assessment: Do you want to hurt yourself or someone else? Patient reports no desire to harm self or others. Onset of symptoms was July 15, 2023. 17:30 Method Of Arrival: Ambulatory as6 17:30 Acuity: HATTIE 4 as6 Triage Assessment: 17:33 General: Appears ill, Behavior is calm, cooperative. Pain: Complains of pain in as6 generalized Quality of pain is described as aching. EENT: Reports sore throat . Respiratory: Reports cough that is. 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 - Social history:: Smoking status: Patient denies any tobacco usage or history of. Screenin:34 [facility] ED Fall Risk Assessment (Adult) Score/Fall Risk Level 0 - 2 = Low Risk. Abuse as6 screen: Denies threats or abuse. Denies injuries from another. Nutritional screening: No deficits noted. Tuberculosis screening: No symptoms or risk factors identified. Vital Signs: 17:30 BP 124 / 81; Pulse 84; Resp 18 S; Temp 98.2(O); Pulse Ox 99% on R/A; Weight 108.86 kg as6 (R); Height 5 ft. 6 in. (R); Pain 10/10; 17:30 Body Mass Index 38.74 (108.86 kg, 167.64 cm) as6 17:30 Pain Scale: Adult as6 ED Course: 17:25 Patient arrived in ED. mr 17:27 Glen Saul PA is PHCP. cp 17:27 Brent Loving MD is Attending Physician. cp 17:31 Triage completed. as6 17:32 Arm band placed on. as6 17:33 Tulio Rocha, DAMI is Primary Nurse. as6 17:34 Bed in low position. Call light in reach. as6 17:49 Strep Sent. as6 17:49 Influenza Screen (a \T\ B) Sent. as6 17:49 COVID-19 SARS RT PCR Sent. as6 18:56 Provided Education on: follow up, rx teaching . as6 18:56 No provider procedures requiring assistance completed. Patient did not have IV access as6 during this emergency room visit. Administered Medications: 17:49 Drug: Tussionex Pennkinetic ER PO Suspension 5 ml PO once Route: PO; as6 18:56 Follow up: Response: No adverse reaction as6 17:49 Drug: Ibuprofen PO 800 mg PO once Route: PO; as6 18:56 Follow up: Response: No adverse reaction as6 Medication: 17:34 VIS not applicable for this client. as6 Outcome: 18:44 Discharge ordered by MD. cp 18:56 Discharged to home ambulatory, with significant other, as6 18:56 Condition: stable 18:56 Discharge instructions given to patient, Instructed on discharge instructions, follow up and referral plans. medication usage, Demonstrated understanding of instructions, follow-up care, medications, Prescriptions given X 2, 18:57 Patient left the ED. as6 Signatures: Za Tomas, Reg Reg mr Glen Saul PA PA cp Tulio Rocha, RN RN as6 Corrections: (The following items were deleted from the chart) 17:32 17:31 PMHx: Asthma; as6 as6
[2023-07-16 21:46] VITALS: BP 124/81; TEMP 98.2; O2SAT 99
== END ==
LOC: ER 17:22
DX: R05.9 Cough, unspecified (principal); J02.9 Acute pharyngitis, unspecified
CPT/HCPCS: 87070; 87081; 87635; 87804